=== PATIENT | male | born 1950 | race Caucasian/White ===

== ENCOUNTER 2024-02-23 21:04 | Emergency (ER) | payer OTHER, SELFPAY ==
[2024-02-23 21:14] VITALS: BP 126/68; PULSE 99; RESP 16; TEMP 36.9; O2SAT 93; BMI 35.0
--- NOTE | 2024-02-23 21:23 | ED.GENADULT ---
HPI - General Adult General Chief complaint: Abdominal Pain Stated complaint: upper abdomen pain Time Seen by Provider: 02/23/24 21:23 History of Present Illness HPI narrative: x of digestive problems since covid, a few days ago was having diarrhea , tried an antidiarrheal and then felt constipated for the past few days. today c/o pain in R upper quadrant, feeling clogged up reports a little nausea, reports a fever of 100 at home around an hour ago. reports last BM 3 days ago diarrhea. 74-year-old man presenting to the emergency department with concern of abdominal pain... or maybe more of a sensation of pressure, discomfort at the stomach-esophageal junction. Marked diarrhea 3 days ago. Has not have a bowel movements since and also feeling like water seems to hang up at distal esophagus. Has not been vomiting. Does acknowledge since quitting smoking significant weight gain with abdominal growth. Has been feeling bloated since this episode as well. Shortly before arrival here temperature measured to 100. No hematemesis or hematochezia described. No melena noted. More uncomfortable when he stands. I find him seated in the provided rocking chair. Took a good dose of MiraLax without result. Has not yet had colonoscopy; apparently family members have had adverse outcome from this and so he has hesitated. Says that doctor has given him a screening test that it sounds like has not been done yet. Related Data Home Medications Medication Instructions Recorded Confirmed aspirin 325 mg tablet 325 mg PO DAILY 02/23/24 02/23/24 lisinopril 5 mg tablet 5 mg PO DAILY 02/23/24 02/23/24 Allergies Allergy/AdvReac Type Severity Reaction Status Date / Time Sulfa (Sulfonamide Allergy Verified 02/23/24 21:21 Antibiotics) Review of Systems Status of ROS: Reports: 6 or more systems reviewed and unremarkable except as noted in History and below [facility] Social History Non-prescribed substance use: denies use Exam Narrative: Exam Narrative: Very pleasant. Breathing easily. Large well-kept mustache. Speaking easily. Cranial nerves 2-12 are intact. Lungs are clear. Heart is in elevated rate and in normal rhythm. Abdomen with normoactive bowel sounds is quite round soft with only a little upper abdominal tympany maybe little uncomfortable in the epigastrium. Is well-perfused peripherally. Oropharynx is unremarkable. Const: Vital Signs, click to edit/add: Vital Signs - 24 hr 02/23/24 21:14 Temperature 98.5 F Pulse Rate [Pulse Oximeter] 99 Respiratory Rate 16 Blood Pressure [Ri ght Upper Arm] 126/68 Pulse Oximetry 93 Oxygen Delivery Me thod Room Air Documenting provider has reviewed patient's vital signs: yes Course Vital Signs Vital signs: Initial Vital Signs Temperature 98.5 F 02/23/24 21:14 Temperature Source Temporal Artery Scan 02/23/24 21:14 Pulse Rate 99 02/23/24 21:14 Respiratory Rate 16 02/23/24 21:14 Blood Pressure 126/68 02/23/24 21:14 Blood Pressure Mean 87 02/23/24 21:14 Blood Pressure Position Sitting 02/23/24 21:14 Pulse Oximetry 93 02/23/24 21:14 Oxygen Delivery Method Room Air 02/23/24 21:14 Vital Signs Temperature 98.5 F 02/23/24 21:14 Pulse Rate 99 02/23/24 21:14 Respiratory Rate 16 02/23/24 21:14 Blood Pressure 126/68 02/23/24 21:14 Pulse Oximetry 93 02/23/24 21:14 Oxygen Delivery Method Room Air 02/23/24 21:14 Temperature 98.5 F 02/23/24 21:14 Pulse Rate 99 02/23/24 21:14 Respiratory Rate 16 02/23/24 21:14 Blood Pressure 126/68 02/23/24 21:14 Pulse Oximetry 93 02/23/24 21:14 Oxygen Delivery Method Room Air 02/23/24 21:14 Medical Decision Making MDM Narrative Medical decision making narrative: Does seem quite well at this time. I suspect some lingering inflammatory changes given degree of diarrhea that have been described. Probably is becoming becoming a little constipated now. Is not describing frankly obstructive process in the esophagus. There may be some dysmotility I suppose though no preceding symptoms. Complicated also by abdominal weight gain probably. Did discuss more extensive workup versus basic imaging evaluating for bowel pattern as he is concerned of potential obstruction. He would prefer to do basic imaging admitting that his symptoms are not too distressing at this time Two-view abdomen reviewed by me is without apparent obstructive process. I do think there is rather well-formed stool in the lower pelvis/colon but not excessive burden. Radiology over-read as below Study:?XRay-Abdomen 2V-02/23/2024 10:35:59 PM Ordering Physician:DALILA Final Report: Indication: Bloating. Technique: Abdomen 5 view. Comparison: CT chest, abdomen, and pelvis 10/08/2021. Findings: Bowel: Nonobstructive bowel gas pattern. Normal colonic stool burden. Other: No sign of free air. No sign of soft tissue mass. The lung bases are clear. Osseous structures are unremarkable for age. Impression: No evidence of an acute intra-abdominal process. I do think is safe for discharge. Discussed [id number] measures to take in the short term. See patient discharge plan for further discussion Discharge Plan Discharge Clinical Impression: Abdominal discomfort, Bloating Patient Disposition: Home, Self-Care Condition: Stable Additional Instructions: It does not appear that you are obstructed or particularly constipated. That said, MiraLax equivalent dosing 1-3 times daily adjusting to stool consistency over the next week or 2 might not be a bad idea. In could be just that you caught a stomach bug and need a little time to equilibrate. You might want to do a slow advance of diet over the next 24 hours with diluted juices, soup broths, crackers, rice, toast. If these symptoms of feeling that things are getting hung up at the lower esophagus or above your stomach, are continuing, would follow this up for further exploration. Return for marked increase in persistent abdominal pain, sensation of food impaction/repeated vomiting, associated fever. Important though to follow-up for that colon screening of whatever form you want to do. I would consider colonoscopy. Prescriptions: No Action lisinopril 5 mg tablet 5 mg PO DAILY aspirin 325 mg tablet 325 mg PO DAILY Follow Up/Referrals: Richard Urbano MD [Referring] - Stand Alone Forms: Megathread Info Instructions
--- NOTE | 2024-02-23 22:09 | XR_ITS ---
Patient: TOOTIE LUNDBERG Facility:?[facility] Patient ID:?[id number] Site Patient ID:?[id number] Site :?[id number] Study:?XRay-Abdomen 2V-02/23/2024 10:35:59 PM Ordering Physician:DALILA Final Report: Indication: Bloating. Technique: Abdomen 5 view. Comparison: CT chest, abdomen, and pelvis 10/08/2021. Findings: Bowel: Nonobstructive bowel gas pattern. Normal colonic stool burden. Other: No sign of free air. No sign of soft tissue mass. The lung bases are clear. Osseous structures are unremarkable for age. Impression: No evidence of an acute intra-abdominal process. Dictated by Surya Roldan MD @ 02/23/2024 10:50:23 PM Signed by:?Surya Roldan MD @02/23/2024 10:50:23 PM (Electronic Signature)
== END 2024-02-23 23:59 | disposition home or self-care (01) ==
PROVIDERS: Emergency Provider Family Medicine; PCP Student in an Organized Health Care Education/Training Program
DX: R10.9 Unspecified abdominal pain (principal); R14.0 Abdominal distension (gaseous)
CPT/HCPCS: 74019; 99283; 99284